=== PATIENT | female | born 1990 | race African-American/Black ===

== ENCOUNTER 2022-03-20 06:08 | Emergency (ER) | payer MEDICAID ==
[~2022-03-20] VITALS: Ht 172.7 cm; Wt 141.0 kg
[2022-03-20 08:09] VITALS: BP 157/115
[2022-03-20] MEDS ORDERED: AMOX500T86 PO (08:16)
[2022-03-20] MEDS ORDERED: IBUP800T26 PO (08:18)
[2022-03-20] MEDS ORDERED: cefTRIAXone SOD 1,000 MG VL IM ONE (08:30)
== END 2022-03-20 08:22 | disposition home or self-care (01) ==
LOC: ER 06:08
DX: J02.0 Streptococcal pharyngitis (principal)
CPT/HCPCS: 87880; 96372; 99283; J0696